=== PATIENT | female | born 1975 | race Caucasian/White ===

== ENCOUNTER → 2016-09-19 | Outpatient (CLI) | payer BC ==
--- NOTE | ~2016-09-19 | CR63 ---
[facility] A Service of [facility] & [facility] RADIOLOGY TEXT RESULTS PATIENT: SARAHY WATTS LOCATION: [facility] : 71 UNIT #: [id number] AGE: [address]: EDGAR KHOURY SEX: F ORDER DR: [id number] [facility] [address] [place], [place] [address] [id number] O MR#: [id number] #: [id number] NAME: SARAHY WATTS : 1975 SEX: F STUDY DATE/TIME: 09/19/2016 10:53 UNIT: [facility] ROOM: STUDY DESCRIPTION: CR Chest 2 View Attending Physician: Edgar Jackman Od Referring Physician: Edgar Jackman Od Ordering Physician: Edgar Jackman Od Primary Care Physician: No Primary Care Physician MEDICAL IMAGING REPORT This report is preliminary unless electronic signature is present EXAM Chest, PA and lateral, 09/19/2016. HISTORY Shortness of breath for 1 month on exertion. Primary iridocyclitis right eye. Benign essential hypertension. Smoking history. FINDINGS PA and lateral examination of the chest upright shows a good expansion of the parenchyma with a normal distribution of the pulmonary vascularity. There is no indication of congestion, effusion, infiltrate, tumor, or nodular density. The pleural reflections and diaphragmatic contours are normal. The cardiac silhouette and mediastinal anatomy is within normal limits. IMPRESSION Normal chest. Dictated by... Jason Lee M.D. THIS IS AN ELECTRONICALLY VERIFIED REPORT Jason Lee M.D. at 09/19/2016 4:34 PM SHRADDHA/jessica TD: 09/19/2016 14:54 JOB #: [id number] MEDICAL IMAGING REPORT Page 1 of 1 COPY
[2016-09-19 11:01] LABS: BASOPHIL# 0.1 X10e3 (0-0.3); BASOPHIL% 0.8 % (0-2.5); EOSINOPHIL# 0.1 X10e3 (0-0.7); EOSINOPHIL% 0.9 % (0.0-7.0); HEMATOCRIT 42.2 % (35.0-45.0); HEMOGLOBIN 14.2 gm/dL (12.0-16.0); LYMPHOCYTE# 2.1 X10e3 (1.0-3.5); LYMPHOCYTE% 16.8 % (17.0-45.0); MEAN CELL VOLUME 90.2 FL (83-96); MEAN CORPUSCULAR HEMOGLOBIN 30.3 PG (28-34); MEAN CORPUSCULAR HGB CONC 33.6 g/dL (30-36); MONOCYTE# 0.5 X10e3 (0-1.0); MONOCYTE% 3.6 % (3.0-12.0); NEUTROPHIL# 9.9 X10e3 (1.5-7.1); NEUTROPHIL% 77.9 % (40-75); PLATELET COUNT 312 X10e3 (140-420); RED BLOOD COUNT 4.68 X10e (3.90-5.30); RED CELL DISTRIBUTION WIDTH 13.8 % (11.0-15.5); WHITE BLOOD COUNT 12.7 X10e3 (4.0-10.5)
[2016-09-19 11:18] LABS: DIFF IND NO
[2016-09-19 11:32] LABS: BUN/CREATININE RATIO 13.33; CALCIUM SERUM 8.8 mg/dL (8.4-10.2); CREATININE SERUM 0.6 mg/dL (0.6-1.4); GLOM FILT RATE Estimated 111.6 mL/min (>60); POTASSIUM 4.2 mmol/L (3.5-5.1)
[2016-09-23 22:24] LABS: ANA SCREEN Negative (Negative)
== END | disposition home or self-care (01) ==
LOC: CLAB 10:01
PROVIDERS: Optometrist
DX: H20.011 Primary iridocyclitis, right eye (principal)
CPT/HCPCS: 36415; 71020; 80048; 82164; 85025; 85549; 85652; 86038; 86039; 86140; 86430; 86592; 86780; 86812